=== PATIENT | male | born 1965 | race Caucasian/White ===

== ENCOUNTER 2018-10-03 07:30 | Outpatient (REF) | payer OTHER, SELFPAY ==
[2018-10-05 14:08] LABS: Helicobacter pylori Ag, Feces Negative (NEGAT)
== END 2018-10-03 07:50 ==
LOC: LBN 07:30
PROVIDERS: PCP Nurse Practitioner; Visit Provider Nurse Practitioner
DX: R12 Heartburn (principal)
CPT/HCPCS: 87338

== ENCOUNTER 2018-12-13 07:19 | Outpatient (CLI) | payer OTHER, SELFPAY ==
[2018-12-13 07:49] LABS: Mean Corp. HGB Concentration 34.9 g/dL (32.0-36.0); Mean Corpuscular Hemoglobin 29.8 pg (27.0-33.0); Mean Corpuscular Volume 85.3 fL (80-95); Mean Platelet Volume 10.5 fL (8.0-11.0); Platelet Count 208 x1000/uL (130-400); RBC 5.04 m/cumm (4.50-6.00); RBC Distribution Width 12.7 % (11.8-14.1); White Blood Cell Count 7.98 k/cumm (4.4-10.8)
[2018-12-13 08:34] LABS: ALT 45 U/L (12-78); AST 32 U/L (15-37); Albumin 3.5 g/dL (3.4-5.0); Alkaline Phosphatase 94 U/L (46-116); Anion Gap 5.9 mmol/L (3-11); BUN 15 mg/dL (7-18); CO2 31.1 mmol/L (21.0-32.0); CREATININE 0.93 mg/dL (0.70-1.30); Calcium 8.9 mg/dL (8.5-10.1); Chloride 103 mmol/L (98-107); Cholesterol 134 mg/dL (50-200); Glucose 96 mg/dL (70-100); HDL Cholesterol 48 mg/dL (40-60); LDL CHOLESTEROL 79 mg/dL (<100); Potassium 4.4 mmol/L (3.5-5.1); Sodium 140 mmol/L (136-145); Total Protein 6.1 g/dL (6.4-8.2); Triglyceride 33 mg/dL (30-150)
== END 2018-12-13 07:39 ==
PROVIDERS: PCP Nurse Practitioner; Visit Provider Nurse Practitioner
DX: I10 Essential (primary) hypertension (principal)
CPT/HCPCS: 36415; 80053; 80061; 83721; 85027

== ENCOUNTER 2019-11-29 13:17 | Emergency (ER) | payer OTHER, SELFPAY ==
[2019-11-29] VITALS (9 sets, daily range): BP systolic 108–162; BP diastolic 62–90; PULSE 68–81; RESP 18; TEMP 36.8; O2SAT 95–100
--- NOTE | 2019-11-29 13:30 | DI.CT_ITS ---
EXAM: CT ABDOMEN PELVIS W CLINICAL HISTORY: RLQ abdominal Pain TECHNIQUE: COMPARISON: No exams were available for comparison FINDINGS: CT examination of the abdomen and pelvis was performed with bolus infusion of 100 cc of Omnipaque 350 . Images obtained through the lung bases are unremarkable. Note is made of hepatic steatosis. Gall bladder and bile ducts are CT normal. Pancreas appears normal. Spleen is unremarkable in appearance . Abdominal aorta is of normal diameter and no major vascular abnormality is seen. Small fat contai malcolm umbilical hernia noted. No other significant abdominal wall hernia seen. No evidence of abdominal or pelvic adenopathy. Appendix is normal. There is no evidence of diverticulitis or bowel obstruction. Adrenals appear normal bilaterally. Left kidney is unremarkable in appearance except for an incidental approximately 2 cm in diameter pos terior cortex cyst. Right kidney contains multiple intrarenal calculi. There is a UPJ calculus measuring about 4 millime ters in diameter. There is no evidence of hydronephrosis but there is increased thickness of the wal l of the ureter with mild enhancement and Juju ureteral fat stranding suggesting associated inflammat ion. Please correlate regarding the possibility of infectious process.. Urinary bladder shows mild wall thickening which may reflect bladder outlet obstruction. IMPRESSION: Right renal calculi with 4 millimeter UPJ stone, apparently nonobstructing but associated with eviden ce adjacent inflammation or irritation. Correlation requested regarding any evidence of urinary trac t sepsis.
--- NOTE | 2019-11-29 13:33 | ED.GENADUL_ITS ---
Discharge Plan Disposition Patient Disposition: HOME Condition: Stable Discharge Details Chief Complaint: Abd Prob Clinical Impression: Kidney stone on right side Primary Care Provider: Analia Lara ED Provider: Esme Peters Home Meds and New Rx's Prescriptions: New tamsulosin 0.4 mg capsule 0.4 mg PO DAILY Qty: 10 RF: 0 tramadol 50 mg tablet 50 mg PO Q8H PRN (Reason: pain) 3 Days Qty: 7 RF: 0 No Action albuterol sulfate 90 mcg/actuation HFA aerosol inhaler 2 puff Inhalation Q4H PRN Qty: 8.5 RF: 6 esomeprazole magnesium 20 mg capsule,delayed release(DR/EC) 20 mg PO BID RF: 0 psyllium seed (sugar) Powder 2 tsp PO ONCE RF: 0 K-Phos Original 500 mg tablet,soluble 500 mg PO .twice weekly RF: 0 bupropion HCl 200 mg tablet sustained-release 12 hr See Rx Instructions PO DAILY Qty: 145 RF: 3 montelukast [Singulair] 10 mg tablet 10 mg PO DAILY Qty: 90 RF: 3 lisinopril 20 mg tablet 20 mg PO DAILY Qty: 90 RF: 0 multivitamin 1 EACH capsule 1 cap PO DAILY RF: 0 Discharge Instructions Instructions: Kidney Stones (ED) Additional Instructions: Take medications as prescribed. Do not operate heavy machinery and take medication for pain with food. If you can only take ibuprofen or Tylenol for pain use that instead. Follow-up with urology in 3 to 5 days. Return to the ED for any worsening pain, fever, decreased urination. Or any concerns. Follow up with primary care provider in 3-5 days. Return to ED sooner if any worsening or concerns. Increase oral fluids. Please take Tylenol or Ibuprofen with food every 4-6 hours as needed for pain and swelling. Referrals: Dennys Chan MD [ [facility] STAFF PHYSICIAN] - Analia Lara NP [Primary Care Provider] - Medical Decision Making 54-year-old male presents with a chief complaint of right lower quadrant abdominal pain. He rates this pain is moderate to severe and is intermittent in nature. He states that this began at 430 this morning as he was getting up out of bed. Associated with nausea and vomiting and chills. Denies radiation. Denies constipation or diarrhea. Denies fever. Only abdominal surgical history is hernia repair. He denies any testicle pain or swelling no dysuria. Differential diagnosis includes constipation, inguinal hernia, appendicitis, bowel obstruction, kidney stone, UTI, testicular torsion, gastroenteritis. CT abdomen pelvis with contrast ordered to rule out appendicitis versus nephrolithiasis and other intra-abdominal pathology. Results show multiple right renal pelvis stones with a 4 mm UVJ stone with surrounding ureteral stranding, no hydronephrosis. At this time patient does not have any evidence of pyuria or UTI. I feel at this time is safe for patient to be discharged home with pain medication and Flomax with outpatient follow-up with urology. CLINICAL HISTORY: RLQ abdominal Pain TECHNIQUE: COMPARISON: No exams were available for comparison FINDINGS: CT examination of the abdomen and pelvis was performed with bolus infusion of 100 cc of Omnipaque 350. Images obtained through the lung bases are unremarkable. Note is made of hepatic steatosis. Gallbladder and bile ducts are CT normal. Pancreas appears normal. Spleen is unremarkable in appearance. Abdominal aorta is of normal diameter and no major vascular abnormality is seen. Small fat containing umbilical hernia noted. No other significant abdominal wall hernia seen. No evidence of abdominal or pelvic adenopathy. Appendix is normal. There is no evidence of diverticulitis or bowel obstruction. Adrenals appear normal bilaterally. Left kidney is unremarkable in appearance except for an incidental approximately 2 cm in diameter posterior cortex cyst. Right kidney contains multiple intrarenal calculi. There is a UPJ calculus measuring about 4 millimeters in diameter. There is no evidence of hydronephrosis but there is increased thickness of the wall of the ureter with mild enhancement and Juju ureteral fat stranding suggesting associated inflammation. Please correlate regarding the possibility of infectious process.. Urinary bladder shows mild wall thickening which may reflect bladder outlet obstruction. IMPRESSION: Right renal calculi with 4 millimeter UPJ stone, apparently nonobstructing but associated with evidence adjacent inflammation or irritation. Correlation requested regarding any evidence of urinary tract sepsis. 1534: Spoke with Dr. Chan with urology regarding patient CT and request for follow-up, verbalizes understanding. Discussed giving patient Flomax and having patient follow-up in office. Will discuss strict return instructions with patient, verbalized understanding. HPI General Mode of arrival: ambulatory . Date/Time Provider Initiated Documentation: 11/29/19 13:21 . Limitations to Documentation: no limitations . Information obtained by: patient . HPI Narrative: 54-year-old male presents with a chief complaint of right lower quadrant abdominal pain. He rates this pain is moderate to severe and is intermittent in nature. He states that this began at 430 this morning as he was getting up out of bed. Associated with nausea and vomiting and chills. Denies radiation. Denies constipation or diarrhea. Denies fever. Only abdominal surgical history is hernia repair. He denies any testicle pain or swelling no dysuria. Related Data Home Medications Medication Instructions Recorded Confirmed multivitamin 1 cap PO DAILY 09/22/15 11/29/19 albuterol sulfate 90 mcg/actuation 2 puff INHALATION Q4H PRN #8.5 gm 08/14/18 11/29/19 aerosol inhaler esomeprazole magnesium 20 mg 20 mg PO BID cap 03/28/19 11/29/19 capsule,delayed release psyllium seed (sugar) 2 tsp PO ONCE gm 03/28/19 11/29/19 potassium phosphate, monobasic 500 500 mg PO .twice weekly tab 08/08/19 11/29/19 mg soluble tablet bupropion HCl 200 mg tablet,12 hr See Rx Instructions PO DAILY #145 09/24/19 11/29/19 sustained-release tab lisinopril 20 mg tablet 20 mg PO DAILY #90 tab 09/24/19 11/29/19 montelukast 10 mg tablet 10 mg PO DAILY #90 tab-cap 09/24/19 11/29/19 tamsulosin 0.4 mg PO DAILY #10 cap 11/29/19 tramadol 50 mg PO Q8H PRN 3 Days #7 tab 11/29/19 Previous Rx's Medication Instructions Recorded albuterol sulfate 90 mcg/actuation 2 puff INHALATION Q4H PRN #8.5 gm 08/14/18 aerosol inhaler bupropion HCl 200 mg tablet,12 hr See Rx Instructions PO DAILY #145 09/24/19 sustained-release tab lisinopril 20 mg tablet 20 mg PO DAILY #90 tab 09/24/19 montelukast 10 mg tablet 10 mg PO DAILY #90 tab-cap 09/24/19 tamsulosin 0.4 mg PO DAILY #10 cap 11/29/19 tramadol 50 mg PO Q8H PRN 3 Days #7 tab 11/29/19 Allergies Allergy/AdvReac Type Severity Reaction Status Date / Time Penicillins Allergy Intermediate rash and Verified 11/29/19 13:25 exacerbates asthma General Stated Complaint: Abd Prob ALYSSA: 3 Review of Systems Narrative: Constitutional: Negative for weight loss, alert and oriented, well groomed, normal body habitus, appears uncomfortable. Positive chills. HEENT: Denies trauma, headaches, blurry vision, nasal discharge, sore throat, trouble swallowing. Chest: Denies chest pain, palpitations, irregular rhythm, hypertension. Respiratory: Denies Shortness of breath, cough, hemoptysis. GI: Denies diarrhea, constipation. Positive right lower quadrant abdominal pain positive nausea and vomiting. : Denies dysuria, hematuria, flank pain, rectal bleeding. Neuro: Denies dizziness, blurry vision, weakness, syncope, headache or facial numbness. Hematologic: Denies easy bruising, intolerance to heat or cold, hair loss. 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 has been stretching Duration: 15-30 minutes/day Frequency: daily Seatbelt use: always Exam Narrative Exam Narrative: Constitutional: Alert and oriented x3. Appears stated age. Normal body habitus. Appears uncomfortable. Head: Normocephalic, no trauma. Eyes: Pupils PERRLA, Red reflex noted, EOM's intact. Eyelids symmetrical without lesions, discharge, or swelling. ENT: Bilateral TM's WNL, External ear normal to inspection, no mastoid TTP, swelling, or erythema, Nasal turbinates WNL, no nasal discharge. Normal dentition, Posterior pharynx WNL, no exudate. Chest: RRR, Normal S1, S2, distal pulses intact. Resp: Lungs clear to auscultation bilaterally, no wheezes, rales, or rhonchi. Abdomen: Soft hypoactive bowel sounds all 4 quadrants. Right lower quadrant tender to palpation over McBurney's point. Positive iliopsoas sign. Negative obturator sign. Musculoskeletal: Normal gait, 5/5 strength to all four extremities. Skin: No suspicious rashes or lesions. Capillary refill less than 2 sec. Neurologic: Cranial nerves II-XII intact. Alert and oriented x 3. DTR's intact. Hematologic/Lymphatic: No ecchymosis, no lymphadenopathy. Course Vital Signs Vital signs: Vital Signs Temperature 36.8 C 11/29/19 13:22 Pulse 68 11/29/19 13:22 Respiratory Rate 18 11/29/19 13:22 Blood Pressure 162/90 H 11/29/19 13:22 Pulse Oximetry 100 11/29/19 13:22 Temperature 36.8 C 11/29/19 13:22 Temperature Source Temporal Artery Scan 11/29/19 13:22 Pulse 68 11/29/19 13:22 Respiratory Rate 18 11/29/19 13:22 Respiratory Effort Non-Labored 11/29/19 13:28 Blood Pressure 162/90 H 11/29/19 13:22 Blood Pressure Position Supine 11/29/19 13:22 Pulse Oximetry 100 11/29/19 13:22 Oxygen Delivery Method Room Air 11/29/19 13:22 Oxygen Flow Rate 0 11/29/19 13:22 Pain Level 10 11/29/19 13:22
[2019-11-29] MEDS: Normal Saline 1,000 ML 1000 ML IV (13:43)
[2019-11-29] MEDS: Ondansetron 4 MG/2 ML VIAL IVP (13:43)
[2019-11-29] MEDS: MORPHine 10 MG/ML VIAL 2 MG IVP (13:44)
[2019-11-29 13:52] LABS: Abs Immature Grans 0.02 k/cumm (0.0-0.09); Absolute Basophil Count 0.03 k/cumm (0.0-0.2); Absolute Eosinophil Count 0.01 k/cumm (0.0-0.7); Absolute Lymphocyte Count 0.96 k/cumm (1.2-3.4); Absolute Monocyte Count 0.21 k/cumm (0.11-0.7); Absolute Neutrophil Count 6.71 k/cumm (1.2-6.7); Basophils % 0.4; Eosinophils % 0.1; HGB 15.4 g/dL (13.5-17.5); Immature Grans % 0.3 %; Lymphocytes % 12.1; Mean Corpuscular Hemoglobin 29.4 pg (27.0-33.0); Mean Platelet Volume 10.5 fL (8.0-11.0); Monocytes % 2.6; Neutrophils % 84.5; Platelet Count 270 x1000/uL (130-400); RBC 5.24 m/cumm (4.50-6.00); RBC Distribution Width 12.2 % (11.8-14.1); White Blood Cell Count 7.94 k/cumm (4.4-10.8)
[2019-11-29 13:55] LABS: ALT 58 U/L (16-63); AST 38 U/L (15-37); Albumin 3.9 g/dL (3.4-5.0); Alkaline Phosphatase 83 U/L (46-116); BUN 13 mg/dL (7-18); Bilirubin, Total 1.4 mg/dL (0.2-1.0); Calcium 8.9 mg/dL (8.5-10.1); Chloride 102 mmol/L (98-107); Glucose 127 mg/dL (74-106); Lipase 85 U/L (73-393); Sodium 135 mmol/L (136-145); Total Protein 6.5 g/dL (6.4-8.2)
[2019-11-29 15:01] LABS: Bilirubin Negative (Negative); Blood Large (Negative); Clarity Sl Cloudy (Clear); Glucose Negative (Negative); Ketones 40 mg/dL (Negative); Leukocyte Esterase Negative (Negative); Nitrite Negative (Negative); Urobilinogen 0.2 EU/dL (Up TO 0.2); pH >= 9.0 (5-8)
[2019-11-29] MEDS: Omnipaque 350 MG/ML 100 ML BTL IJ (15:12)
[2019-11-29 15:23] LABS: Bacteria Negative HPF (Negative); C & S Indicated? No; Casts Negative LPF (Negative); Crystals Negative HPF (Negative); Epithelial Cells Rare HPF (Negative); Mucus Negative (Negative); RBC 20-50 HPF (0-2); WBC 0-2 HPF (0-5)
[2019-11-29] MEDS: Tamsulosin 0.4 MG CAPCR PO (15:48)
== END 2019-11-29 15:50 | disposition home or self-care (01) ==
PROVIDERS: Emergency Provider Registered Nurse Emergency; PCP Nurse Practitioner
DX: N20.2 Calculus of kidney with calculus of ureter (principal)
CPT/HCPCS: 36415; 80053; 83690; 96361; 96374; 96375; 99285; 74177; 81003; 81015; 85025; 99284; J2270; J2405; J3490

== ENCOUNTER 2019-12-04 00:21 | Emergency (ER) | payer OTHER, SELFPAY ==
[2019-12-04 00:23] VITALS: BP 130/80; PULSE 72; RESP 20; TEMP 36.7; O2SAT 98
--- NOTE | 2019-12-04 00:28 | NUR.NOTE ---
Pt seen 11/28 for left flank pain, dx with kidney stone, sent home on flomax and pain med. States felt better x 3 days, today had pain in right abd again and N/V. Abd pain resolved. Denies hematuria, dysuria. Denies fevers.
--- NOTE | 2019-12-04 00:35 | W.ED.GENAD ---
Discharge Plan Disposition Patient Disposition: HOME Condition: Improving Discharge Details Chief Complaint: Nausea/Vomit/Diar Clinical Impression: Renal colic on right side Primary Care Provider: Aanlia Lara ED Provider: Alberto Farrell Home Meds and New Rx's Prescriptions: New ciprofloxacin HCl 500 mg tablet 500 mg PO BID Qty: 10 RF: 0 Continued albuterol sulfate 90 mcg/actuation HFA aerosol inhaler 2 puff Inhalation Q4H PRN Qty: 8.5 RF: 6 esomeprazole magnesium 20 mg capsule,delayed release(DR/EC) 20 mg PO BID RF: 0 psyllium seed (sugar) Powder 2 tsp PO ONCE RF: 0 K-Phos Original 500 mg tablet,soluble 500 mg PO .twice weekly RF: 0 bupropion HCl 200 mg tablet sustained-release 12 hr See Rx Instructions PO DAILY Qty: 145 RF: 3 montelukast [Singulair] 10 mg tablet 10 mg PO DAILY Qty: 90 RF: 3 lisinopril 20 mg tablet 20 mg PO DAILY Qty: 90 RF: 0 multivitamin 1 EACH capsule 1 cap PO DAILY RF: 0 tamsulosin 0.4 mg capsule 0.4 mg PO DAILY Qty: 10 RF: 0 Discharge Instructions Instructions: Kidney Stones (ED), Renal Colic (ED) Additional Instructions: Please continue the previously prescribed tamsulosin as it will help to relax your ureter to aid in passage of the kidney stone. Please take ciprofloxacin as prescribed. We will ask care management to arrange an outpatient follow-up for you in urology clinic. May continue Tylenol and/or ibuprofen as needed for pain. Continue small, frequent sips of water to maintain good hydration. Return if develop a fever, recurrent pain that is refractive to home medications, or any other acute concerns. Medical Decision Making 54-year-old male presents from home with history of 4 mm distal ureteral kidney stone, right-sided, diagnosed this past . He states his pain improved and was feeling better. He now reports recurrence of pain after dinner this evening followed by persistent nausea. Is not had any ongoing pain but has been unable to take liquids or solids by mouth due to persistent nausea and vomiting. He is afebrile and well-appearing. Labs note total bili of 1.5, AST 41, ALT 55 which are not significantly changed versus recent comparison. Reviewed recent CT scan, note is made of hepatic steatosis. Gallbladder and bile ducts were unremarkable. On IV fluids and antiemetic, the patient's nausea improved, he then began to develop recurrent colicky right lower quadrant pain. Repeat imaging was obtained and patient given Toradol with resolution of pain. CT reveals right hydroureteronephrosis with note of persistent 4 to 5 cm calculus that has progressed distally. Urinalysis is notable for positive leuk esterase, no red blood cells, no white cells, negative nitrates, but does note rare bacteria. Out of an abundance of caution, I will treat him with a course of ciprofloxacin and we will arrange outpatient follow-up in urology. Patient is stable and improved at this time. Lab Data Lab results reviewed: Yes I reviewed the patient's lab results. Labs: Laboratory Results - last 24 hr 12/04/19 12/04/19 00:28 00:28 WBC 8.00 RBC 5.04 Hgb 15.1 Hct 42.2 MCV 83.7 MCH 30.0 MCHC 35.8 RDW 12.3 Plt Count 263 MPV 10.4 Immature Gran % 0.3 Neutrophils % 79.0 Lymphocytes % 15.8 Monocytes % 4.4 Eosinophils % 0.1 Basophils % 0.4 Absolute Neutrophils 6.33 Absolute Lymphocytes 1.26 Absolute Monocytes 0.35 Absolute Eosinophils 0.01 Absolute Basophils 0.03 Sodium 135 L Potassium 4.1 Chloride 101 Carbon Dioxide 28.3 Anion Gap 5.7 BUN 12 Creatinine 1.20 Estimated GFR/1.73 m2 >= 60.00 Glucose 129 H Calcium 8.8 Total Bilirubin 1.5 H AST 41 H ALT 55 Alkaline Phosphatase 74 Total Protein 6.4 Albumin 3.8 HPI General Mode of arrival: ambulatory. Date/Time Provider Initiated Documentation: 12/04/19 00:28. Limitations to Documentation: no limitations. Information obtained by: patient. History of Present Illness 54 year old M presents to the emergency department with the chief complaint of Recent kidney stone, now nauseated and vomiting, described as moderate, Quality is described as dull, and is localized to the abdomen and right. Patient reports no radiation. Patient started experiencing this hour(s) and it has been constant. No relieving factors improve symptom(s), Eating worsens symptoms . Patient notes other (States he had abdominal pain recurrent earlier in the day, now no pain); denies fever/chills. Patient did receive the following treatments prior to arrival, none Related Data Home Medications Medication Instructions Recorded Confirmed multivitamin 1 cap PO DAILY 09/22/15 12/04/19 albuterol sulfate 90 mcg/actuation 2 puff INHALATION Q4H PRN #8.5 gm 08/14/18 12/04/19 aerosol inhaler esomeprazole magnesium 20 mg 20 mg PO BID cap 03/28/19 12/04/19 capsule,delayed release psyllium seed (sugar) 2 tsp PO ONCE gm 03/28/19 12/04/19 potassium phosphate, monobasic 500 500 mg PO .twice weekly tab 08/08/19 12/04/19 mg soluble tablet bupropion HCl 200 mg tablet,12 hr See Rx Instructions PO DAILY #145 09/24/19 12/04/19 sustained-release tab lisinopril 20 mg tablet 20 mg PO DAILY #90 tab 09/24/19 12/04/19 montelukast 10 mg tablet 10 mg PO DAILY #90 tab-cap 09/24/19 12/04/19 tamsulosin 0.4 mg PO DAILY #10 cap 11/29/19 12/04/19 ciprofloxacin HCl 500 mg PO BID #10 tab 12/04/19 Previous Rx's Medication Instructions Recorded albuterol sulfate 90 mcg/actuation 2 puff INHALATION Q4H PRN #8.5 gm 08/14/18 aerosol inhaler bupropion HCl 200 mg tablet,12 hr See Rx Instructions PO DAILY #145 09/24/19 sustained-release tab lisinopril 20 mg tablet 20 mg PO DAILY #90 tab 09/24/19 montelukast 10 mg tablet 10 mg PO DAILY #90 tab-cap 09/24/19 tamsulosin 0.4 mg PO DAILY #10 cap 11/29/19 ciprofloxacin HCl 500 mg PO BID #10 tab 12/04/19 Allergies Allergy/AdvReac Type Severity Reaction Status Date / Time Penicillins Allergy Intermediate rash and Verified 12/04/19 00:25 exacerbates asthma General Stated Complaint: Nausea/Vomit/Diar ALYSSA: 3 Review of Systems Narrative: No fever, recent travel, known sick contacts. He has otherwise been well. Taking his medications as prescribed. 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 has been stretching Duration: 15-30 minutes/day Frequency: daily Seatbelt use: always Do you feel safe at home: Yes Do you feel safe in your relationship?: Yes Exam Narrative Exam Narrative: GEN: awake, alert, oriented 3. Pleasant, well groomed, interactive. HEAD: Normocephalic, atraumatic ENT: Mucous membranes dry, External ear exam unremarkable EYES: PERRL, EOMI NECK: Full ROM, no TAE, no menigismus CHEST/RESP: Nontender, clear to auscultation bilateral, no wheeze/rhonchi/rales CARDIOVASCULAR: RRR, no murmur, rub camelia. 2+ Rad pulse bilateral ABDOMEN: Soft, nontender, no mass. +Bowel sounds EXT: Full ROM, no edema, no rash Neuro: Grossly normal neurologic exam, conversant, interactive. Psych: Speech fluent, thoughts congruent, affect normal Course Vital Signs Vital signs: Vital Signs Temperature 36.7 C 12/04/19 00:23 Pulse 72 12/04/19 00:23 Respiratory Rate 20 12/04/19 00:23 Blood Pressure 130/80 12/04/19 00:23 Pulse Oximetry 98 12/04/19 00:23 Temperature 36.7 C 12/04/19 00:23 Temperature Source Temporal Artery Scan 12/04/19 00:23 Pulse 72 12/04/19 00:23 Respiratory Rate 20 12/04/19 00:23 Respiratory Effort 12/04/19 00:26 Blood Pressure 130/80 12/04/19 00:23 Blood Pressure Position Sitting 12/04/19 00:23 Pulse Oximetry 98 12/04/19 00:23 Oxygen Delivery Method Room Air 12/04/19 00:23 Oxygen Flow Rate 0 12/04/19 00:23 Pain Level 0 12/04/19 00:23
[2019-12-04] MEDS: Ondansetron 4 MG/2 ML VIAL 8 MG IVP (00:41)
[2019-12-04] MEDS: Normal Saline 1,000 ML 1000 ML IV (00:42)
[2019-12-04 00:44] LABS: Abs Immature Grans 0.02 k/cumm (0.0-0.09); Absolute Basophil Count 0.03 k/cumm (0.0-0.2); Absolute Eosinophil Count 0.01 k/cumm (0.0-0.7); Absolute Lymphocyte Count 1.26 k/cumm (1.2-3.4); Absolute Monocyte Count 0.35 k/cumm (0.11-0.7); Absolute Neutrophil Count 6.33 k/cumm (1.2-6.7); Basophils % 0.4; Eosinophils % 0.1; HCT 42.2 % (40.0-50.0); HGB 15.1 g/dL (13.5-17.5); Immature Grans % 0.3 %; Lymphocytes % 15.8; Mean Corp. HGB Concentration 35.8 g/dL (32.0-36.0); Mean Corpuscular Volume 83.7 fL (80-95); Mean Platelet Volume 10.4 fL (8.0-11.0); Monocytes % 4.4; Platelet Count 263 x1000/uL (130-400); RBC 5.04 m/cumm (4.50-6.00); RBC Distribution Width 12.3 % (11.8-14.1)
[2019-12-04 00:56] LABS: ALT 55 U/L (16-63); AST 41 U/L (15-37); Albumin 3.8 g/dL (3.4-5.0); Alkaline Phosphatase 74 U/L (46-116); Anion Gap 5.7 mmol/L (3-11); BUN 12 mg/dL (7-18); Bilirubin, Total 1.5 mg/dL (0.2-1.0); CO2 28.3 mmol/L (21.0-32.0); Calcium 8.8 mg/dL (8.5-10.1); Chloride 101 mmol/L (98-107); Glucose 129 mg/dL (74-106); Potassium 4.1 mmol/L (3.5-5.1); Sodium 135 mmol/L (136-145); Total Protein 6.4 g/dL (6.4-8.2)
[2019-12-04] MEDS: Ketorolac 30 MG/ML VIAL IVP (01:12)
--- NOTE | 2019-12-04 01:25 | DI.CT_ITS ---
EXAM: CT ABDOMEN PELVIS WO CLINICAL HISTORY: RLQ pain. TECHNIQUE: Imaging Protocol: Axial computed tomography images with coronal and sagittal reformatted images were created and reviewed. COMPARISON: CT CT ABDOMEN PELVIS W from 11/29/2019 FINDINGS: ABDOMEN: Lung Bases: Normal where visualized. Liver: Diffuse decreased attenuation consistent with fatty liver. No measurable mass. Gallbladder and biliary tract: No radiodense calculus or biliary ductal dilation. Pancreas: Normal density, no abnormal calcifications or inflammatory process. Spleen: Normal. Kidneys: Normal size, contour and axis. The previously noted 4 mm stone has migrated distally within the ureter. There is moderate hydronephrosis. Several other nonobstructing right renal stones are p resent. There is again seen a cyst cyst on the left kidney. No evidence of left nephrolithiasis or obstruction. Adrenal glands: No masses seen. Lymph nodes: Within normal limits. Abdominal Aorta: Abdominal portion non-dilated. Mild atherosclerosis. PELVIS: Bladder: Symmetric distention, no gross wall thickening. Bowel: No obstruction or bowel wall thickening. The appendix is unremarkable. Peritoneal cavity: No ascites, collection or mesenteric inflammatory response. Reproductive organs: Within normal limits. Bones: Mild degenerative changes. Soft Tissues: Small fat containing umbilical hernia. IMPRESSION: Previously noted 4 mm stone has migrated approximately 4-5 cm distally within the right ureter. Ther e is moderate hydronephrosis. RADIATION DOSE DELIVERED: 1,098.18mGy.cm Total DLP DATA REPOSITORY: All CT scans at this facility are submitted to the National Radiology Data Registry (NRDR) Dose Index Registry (DIR) with the [employer] ([employer]). RADIATION OPTIMIZATION: All CT scans at this facility use at least one of these dose optimization te chniques: automated exposure control; mA and/or kV adjustment per patient size (includes targeted exa ms where dose is matched to clinical indication); or iterative reconstruction.
--- NOTE | 2019-12-04 01:50 | NUR.NOTE ---
Pain free after toradol. Nausea improved s/p zofra. atempted to give UA, unable. MD Farrell aware.
--- NOTE | 2019-12-04 01:55 | DI.VRAD_ITS ---
PROCEDURE INFORMATION: Exam: CT Abdomen And Pelvis Without Contrast Exam date and time: 12/04/2019 1:07 AM Age: 54 years old Clinical indication: Abdominal pain; Localized; Right lower quadrant (rlq); Prior surgery; Surgery date: 6+ months; Surgery type: Hernia repair; Patient HX: Rlq pain, known kidney stone TECHNIQUE: Imaging protocol: Computed tomography of the abdomen and pelvis without contrast. Radiation optimization: All CT scans at this facility use at least one of these dose optimization techniques: automated exposure control; mA and/or kV adjustment per patient size (includes targeted exams where dose is matched to clinical indication); or iterative reconstruction. COMPARISON: CT ABDOMEN PELVIS W 11/29/2019 3:05 PM FINDINGS: Liver: Low-attenuation of the liver is in keeping with hepatic steatosis. Gallbladder and bile ducts: Normal. No calcified stones. No ductal dilation. Pancreas: Normal. No ductal dilation. Spleen: Normal. No splenomegaly. Adrenals: Normal. No mass. Kidneys and ureters: Simple appearing left renal cyst measures 1.9 cm. There are several punctate nonobstructing right renal calculi. There is mild right hydronephrosis and proximal hydroureter to the level of a 4 x 8 mm right proximal ureteral calculus (series 2, image 46). This calculus has migrated slightly distally in comparison to 11/29/2019. There is right perinephric and proximal periureteral stranding, increased in comparison to the prior study. No drainable fluid collection. The left kidney and ureter are otherwise within normal limits. Stomach and bowel: Mild stool burden in the colon. Normal stomach. No small bowel obstruction or wall thickening. Appendix: Normal appendix. Intraperitoneal space: See Kidneys and ureters finding. Vasculature: No abdominal aortic aneurysm. Lymph nodes: No enlarged lymph nodes. Bladder: Unremarkable as visualized. Reproductive: Top-normal prostate size measuring up to 4.8 cm in transverse diameter. Bones/joints: Mild multilevel degenerative changes in the spine. No acute osseous findings. Soft tissues: Small fat containing umbilical hernia. Other findings: No acute findings in the lower chest. IMPRESSION: Right hydroureteronephrosis to the level of a calculus in the proximal ureter, noting that the stone has mildly progressed distally by approximately 4-5 cm in comparison to 11/29/2019. Associated perinephric and proximal periureteral stranding, increased since the prior study. Dictated and Authenticated by: Jade Hein MD. Ordering:JACKIE Dominguez MD
[2019-12-04 02:27] LABS: Bilirubin Negative (Negative); Blood Trace-intact (Negative); Clarity Clear (Clear); Glucose Negative (Negative); Ketones 15 mg/dL (Negative); Leukocyte Esterase Trace (Negative); Nitrite Negative (Negative); Specific Gravity 1.015 (1.005-1.025); Urobilinogen 0.2 EU/dL (Up TO 0.2)
[2019-12-04 02:34] LABS: Bacteria Rare HPF (Negative); C & S Indicated? Yes; Casts Negative LPF (Negative); Crystals Negative HPF (Negative); Epithelial Cells Negative HPF (Negative); Mucus Negative (Negative); RBC 0-2 HPF (0-2); WBC 0-2 HPF (0-5)
[2019-12-04 02:47] VITALS: BP 132/81; PULSE 74; RESP 16; TEMP 37; O2SAT 97
== END 2019-12-04 02:50 | disposition home or self-care (01) ==
PROVIDERS: Emergency Provider Emergency Medicine; PCP Nurse Practitioner
DX: N13.2 Hydronephrosis with renal and ureteral calculous obstruction (principal)
CPT/HCPCS: 36415; 80053; 96361; 96374; 96375; 99284; 74176; 81003; 81015; 85025; 87086; J1885; J2405

== ENCOUNTER 2019-12-07 01:38 | Emergency (ER) | payer OTHER, SELFPAY ==
[2019-12-07 01:45] VITALS: BP 123/89; PULSE 69; RESP 20; TEMP 37.3; O2SAT 97
--- NOTE | 2019-12-07 01:46 | W.ED.GENAD ---
Discharge Plan Disposition Patient Disposition: HOME Condition: Good Discharge Details Chief Complaint: FlankPain Clinical Impression: Renal colic on right side Primary Care Provider: Analia Lara ED Provider: Gwyn Resendiz [place] Meds and New Rx's Prescriptions: Continued tamsulosin 0.4 mg capsule 0.4 mg PO DAILY Qty: 10 RF: 0 ketorolac 10 mg tablet 10 mg PO TID PRN (Reason: pain) 5 Days Qty: 15 RF: 0 albuterol sulfate 90 mcg/actuation HFA aerosol inhaler 2 puff Inhalation Q4H PRN Qty: 8.5 RF: 6 esomeprazole magnesium 20 mg capsule,delayed release(DR/EC) 20 mg PO BID RF: 0 psyllium seed (sugar) Powder 2 tsp PO ONCE RF: 0 K-Phos Original 500 mg tablet,soluble 500 mg PO .twice weekly RF: 0 bupropion HCl 200 mg tablet sustained-release 12 hr See Rx Instructions PO DAILY Qty: 145 RF: 3 montelukast [Singulair] 10 mg tablet 10 mg PO DAILY Qty: 90 RF: 3 lisinopril 20 mg tablet 20 mg PO DAILY Qty: 90 RF: 0 prochlorperazine maleate [Compazine] 5 mg tablet 5 mg PO QID PRN (Reason: nausea and vomiting) Qty: 20 RF: 0 multivitamin 1 EACH capsule 1 cap PO DAILY RF: 0 ciprofloxacin HCl 500 mg tablet 500 mg PO BID Qty: 10 RF: 0 tramadol [Ultram] 50 mg tablet 50 mg PO .Q8H PRN RF: 0 Discharge Instructions Instructions: Renal Colic (ED) Additional Instructions: Continue your antibiotic and your Flomax. Use Tylenol and ketorolac in an alternating fashion to try to keep your pain under control. However, if pain starts to ramp up please take your tramadol before it gets too bad. Prochlorperazine is for nausea/vomiting. Follow-up with Dr. Chan for your surgery as planned. Return to ED for fever, uncontrolled pain, vomiting. Referrals: Dennys Chan MD [ [facility]] - Medical Decision Making IV established. Patient given 0.5 mg of IV Dilaudid and 4 mg of IV Zofran. We had to place him on some oxygen as he did have some desaturations related to sedation. Pain is controlled. We will watch him for a little while. 03:10 - Patient doing fine now. Pain controled. Awake and doing well. We reviewed his medications with his over the phone. He has ketorolac and tramadol at home. He also has prochlorperazine for nausea. Tonight he took the ketorolac but almost immediately vomited it back up. Sounds like he like the pain get ahead of him. I have discussed with him using Tylenol alternating with ketorolac fairly regularly to keep pain controlled. He should use the tramadol as soon as the pain starts to ramp up to stay ahead of it. Follow-up with Dr. Chan for surgery as planned. Return to ED for fever, uncontrolled pain, persistent vomiting. Medical Records Medical records reviewed: Yes I reviewed the patient's medical records. HPI General Mode of arrival: ambulatory. Date/Time Provider Initiated Documentation: 12/07/19 01:39. Limitations to Documentation: no limitations. Information obtained by: patient, RN notes reviewed and old records reviewed. HPI Narrative: Patient presents with recurrent right lower quadrant abdominal pain. He has a known right ureteral stone with hydronephrosis. He was seen by urology just a few days ago. He has been scheduled for procedure hopefully within the next week. For the most part pain has been controllable. Tonight severe uncontrolled pain with nausea and vomiting. There is no fevers. He is on Flomax, Cipro, ketorolac and Compazine. Related Data Home Medications Medication Instructions Recorded Confirmed multivitamin 1 cap PO DAILY 09/22/15 12/07/19 albuterol sulfate 90 mcg/actuation 2 puff INHALATION Q4H PRN #8.5 gm 08/14/18 12/07/19 aerosol inhaler esomeprazole magnesium 20 mg 20 mg PO BID cap 03/28/19 12/07/19 capsule,delayed release psyllium seed (sugar) 2 tsp PO ONCE gm 03/28/19 12/07/19 potassium phosphate, monobasic 500 500 mg PO .twice weekly tab 08/08/19 12/07/19 mg soluble tablet bupropion HCl 200 mg tablet,12 hr See Rx Instructions PO DAILY #145 09/24/19 12/07/19 sustained-release tab lisinopril 20 mg tablet 20 mg PO DAILY #90 tab 03/09/20 05/22/20 montelukast 10 mg tablet 10 mg PO DAILY #90 tab-cap 09/24/19 12/07/19 ciprofloxacin HCl 500 mg PO BID #10 tab 12/04/19 12/07/19 ketorolac 10 mg tablet 10 mg PO TID PRN 5 Days #15 tab 12/04/19 12/07/19 prochlorperazine maleate 5 mg 5 mg PO QID PRN #20 tab 12/04/19 12/07/19 tablet tamsulosin 0.4 mg capsule 0.4 mg PO DAILY #10 cap 12/04/19 12/07/19 tramadol [Ultram] 50 mg PO .Q8H PRN 12/07/19 12/07/19 Previous Rx's Medication Instructions Recorded albuterol sulfate 90 mcg/actuation 2 puff INHALATION Q4H PRN #8.5 gm 08/14/18 aerosol inhaler bupropion HCl 200 mg tablet,12 hr See Rx Instructions PO DAILY #145 09/24/19 sustained-release tab lisinopril 20 mg tablet 20 mg PO DAILY #90 tab 09/24/19 montelukast 10 mg tablet 10 mg PO DAILY #90 tab-cap 09/24/19 ciprofloxacin HCl 500 mg PO BID #10 tab 12/04/19 ketorolac 10 mg tablet 10 mg PO TID PRN 5 Days #15 tab 12/04/19 prochlorperazine maleate 5 mg 5 mg PO QID PRN #20 tab 12/04/19 tablet tamsulosin 0.4 mg capsule 0.4 mg PO DAILY #10 cap 12/04/19 Allergies Allergy/AdvReac Type Severity Reaction Status Date / Time Penicillins Allergy Intermediate rash and Verified 12/07/19 02:02 exacerbates asthma General ALYSSA: 3 Review of Systems Narrative: As documented in HPI otherwise negative as below. Const: no fever, chills, weakness Resp: no cough, SOB, pleuritic pain CV: no CP, diaphoresis, edema, syncope GI: abdominal pain, nausea, vomiting Neuro: no headache, numbness, focal weakness, confusion [facility] Medical History Asthma Chronic gastroesophageal reflux disease (Acute) 02/16/19 DM Gastro. with dyspepsia and odynophagia 03/06/19 EGD [facility] mild chronic nonpsecific gastritis Depression (Chronic 02/10/18) HTN (hypertension) (Chronic) Kidney stone on right side (Acute) Surgical History Repair of umbilical hernia Social History Smoking/Tobacco Use Status: Former Tobacco Use Quit Date: 08/08/04 Pack-years: 8 Tobacco: How many years used: 17 Alcohol Intake: current Alcohol Intake frequency: a few times a week Alcohol type: beer and hard liquor Drug use: Never Substance use type: does not use Household members: spouse Housing: house Number of Children: 3 number of grandchildren: 0 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 has been stretching Duration: 15-30 minutes/day Frequency: daily Seatbelt use: always Do you feel safe at home: Yes Do you feel safe in your relationship?: Yes Exam Narrative Exam Narrative: Vitals: Afebrile with normal vitals and normal room air pulse ox. Const: WDWN male in distress from pain. HEENT: NC/AT. Normal facial exam. Eyes: Normal conjunctiva and sclera. Neck: Supple. Trachea midline. Lungs: Normal respiratory effort. Cor: Good radial pulses. GI: Soft. NT/ND. No guarding or rebound. Neuro: A+O x 3. Normal speech, mentation, gait. Cranial nerves II - XII grossly intact. No gross motor or sensory deficit. Ext: No C/C/E. Skin: Warm and dry without rash.
[2019-12-07] MEDS: Ondansetron 4 MG/2 ML VIAL IVP (02:02)
[2019-12-07] MEDS: HYDROmorphone 2 MG/ML VIAL 0.5 MG IVP (02:02)
[2019-12-07 04:19] VITALS: BP 105/69; PULSE 69; RESP 12; TEMP 36.9; O2SAT 97
== END 2019-12-07 03:45 | disposition home or self-care (01) ==
LOC: ER 03:26
PROVIDERS: Emergency Provider Emergency Medicine; PCP Nurse Practitioner
DX: N13.2 Hydronephrosis with renal and ureteral calculous obstruction (principal); R11.2 Nausea with vomiting, unspecified; I10 Essential (primary) hypertension
CPT/HCPCS: 96374; 96375; 99284; 99283; J2405

== ENCOUNTER 2019-12-07 09:44 | Day surgery (SDC) | payer OTHER, SELFPAY ==
[2019-12-07 09:50] VITALS: BP 121/90; PULSE 66; RESP 16; TEMP 36.8; O2SAT 98
[2019-12-07] MEDS: Lactated Ringers 1,000 ML 80 ML IV (10:28)
[2019-12-07] MEDS: CIPROFLOXACIN 400 MG/200 ML BAG 200 MG IVPB (10:30)
--- NOTE | 2019-12-07 10:46 | HPE_ITS ---
Date of service: 12/07/19 Time of Service: 10:53 Assessment and Plan Assessment and plan (1) Kidney stone on right side: Status: Acute Assessment and plan: With his recurrent ER visits for uncontrolled pain, we will proceed with cystoscopy, right retrograde pyelogram, possible ureteroscopy with laser lithotripsy, possible stent placement on a more urgent basis. History of Present Illness History of Present Illness Chief Complaint: Right renal colic Narrative: Candelario is a 54-year-old male referred to urology by the emergency room. He was seen most recently earlier this morning for right colic flank pain. He was also seen last for similar discomfort. Both episodes it was noted that he had a stone in the right ureter. He thinks that the first episode of this right flank pain started back in September. At that point it was manageable with [id number] medications. He was not sure what it was but try to work it out at home. He notes that the discomfort is manageable for the most part however the nausea and vomiting today have been causing him to have greater concern. He did call his PCPs office for the nausea. Currently he says his pain is manageable. Last medication for pain was given through the emergency room. He was scheduled for a stone manipulation for next week but he presented to the emergency department again today with severe pain requiring IV analgesia and antiemetics. We have moved his procedure up and are doing the procedure on an urgent basis. as such, he has not had Covid testing. Denies dysuria, hematuria, frequency, urgency, or fevers. He has had some chills when he gets extreme discomfort and nausea. He thinks he has been having some radiating discomfort down into his right testicle. This is his first kidney stone. He has no history of gout. He has no history of parathyroidism. He does note that he does not drink nearly enough water. He also says he has a high salt diet. Review of Systems Narrative: No fevers or chills No vision change No diabetes or thyroid No shortness of breath, cough or hemoptysis No chest pain or palpitations No hepatitis, ulcers, jaundice, diarrhea or constipation No seizures, strokes or peripheral neuropathy No bleeding disorders or anemia No gout PFSH Social History Smoking/Tobacco Use Status: Former Tobacco Use Quit Date: 08/08/04 Pack-years: 8 Tobacco: How many years used: 17 Alcohol Intake: current Alcohol Intake frequency: a few times a week Alcohol ty pe: beer and hard liquor Drug use: Never Substance use type: does not use Household members: spouse Housing: house Number of Children: 3 number of grandchildren: 0 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 has been stretching Duration: 15-30 minutes/day Frequency: daily Seatbelt use: always Do you feel safe at home: Yes Do you feel safe in your relationship?: Yes Meds Home Medications and Allergies Home Medications Medication Instructions Recorded Confirmed Type multivitamin 1 cap PO DAILY 09/22/15 12/07/19 History albuterol sulfate 90 mcg/actuation 2 puff INHALATION Q4H PRN #8.5 gm 08/14/18 12/07/19 Rx aerosol inhaler esomeprazole magnesium 20 mg 20 mg PO BID cap 03/28/19 12/07/19 History capsule,delayed release psyllium seed (sugar) 2 tsp PO ONCE gm 03/28/19 12/07/19 History potassium phosphate, monobasic 500 500 mg PO .twice weekly tab 08/08/19 12/07/19 History mg soluble tablet bupropion HCl 200 mg tablet,12 hr See Rx Instructions PO DAILY #145 09/24/19 12/07/19 Rx sustained-release tab lisinopril 20 mg tablet 20 mg PO DAILY #90 tab 09/24/19 12/07/19 Rx montelukast 10 mg tablet 10 mg PO DAILY #90 tab-cap 09/24/19 12/07/19 Rx ciprofloxacin HCl 500 mg PO BID #10 tab 12/04/19 12/07/19 Rx ketorolac 10 mg tablet 10 mg PO TID PRN 5 Days #15 tab 12/04/19 12/07/19 Rx prochlorperazine maleate 5 mg 5 mg PO QID PRN #20 tab 12/04/19 12/07/19 Rx tablet tamsulosin 0.4 mg capsule 0.4 mg PO DAILY #10 cap 12/04/19 12/07/19 Rx tramadol [Ultram] 50 mg PO .Q8H PRN 12/07/19 12/07/19 History Allergies Allergy/AdvReac Type Severity Reaction Status Date / Time Penicillins Allergy Intermediate rash and Verified 12/07/19 02:02 exacerbates asthma Exam Neck Neck: supple Resp Effort & Inspection: normal respiratory effort Auscultation: clear to auscultation bilaterally Cardio Rate: regular rate Rhythm: regular rhythm GI Palpation: soft and no masses Neuro General: patient alert, patient awake and patient oriented x3 Results Last Vital Signs Temp 36.8 C 12/07/19 09:50 Pulse 66 12/07/19 09:50 Resp 16 12/07/19 09:50 BP 121/90 12/07/19 09:50 Pulse Ox 98 12/07/19 09:50 COVID-19 Screening In the past 14 days, have you traveled outside of [place] or [place]?: NO
[2019-12-07] MEDS: Lidocaine 2% Jelly 6 ML SYR (11:29)
[2019-12-07] MEDS: Omnipaque 300 MG/ML 50 ML BTL (11:43)
--- NOTE | 2019-12-07 12:24 | W.PM.DSUDISC ---
Discharge Plan Disposition Patient Disposition: HOME Condition: Stable Discharge Details Reason For Visit: (R) URETERAL STONE Attending Provider: Dennys Chan Primary Care Provider: Analia Lara Home Meds and New Rx's Prescriptions: No Action tamsulosin 0.4 mg capsule 0.4 mg PO DAILY Qty: 10 RF: 0 ketorolac 10 mg tablet 10 mg PO TID PRN (Reason: pain) 5 Days Qty: 15 RF: 0 albuterol sulfate 90 mcg/actuation HFA aerosol inhaler 2 puff Inhalation Q4H PRN Qty: 8.5 RF: 6 esomeprazole magnesium 20 mg capsule,delayed release(DR/EC) 20 mg PO BID RF: 0 psyllium seed (sugar) Powder 2 tsp PO ONCE RF: 0 K-Phos Original 500 mg tablet,soluble 500 mg PO .twice weekly RF: 0 bupropion HCl 200 mg tablet sustained-release 12 hr See Rx Instructions PO DAILY Qty: 145 RF: 3 montelukast [Singulair] 10 mg tablet 10 mg PO DAILY Qty: 90 RF: 3 lisinopril 20 mg tablet 20 mg PO DAILY Qty: 90 RF: 0 prochlorperazine maleate [Compazine] 5 mg tablet 5 mg PO QID PRN (Reason: nausea and vomiting) Qty: 20 RF: 0 multivitamin 1 EACH capsule 1 cap PO DAILY RF: 0 ciprofloxacin HCl 500 mg tablet 500 mg PO BID Qty: 10 RF: 0 tramadol [Ultram] 50 mg tablet 50 mg PO .Q8H PRN RF: 0 Discharge Instructions Additional Instructions: Patient should keep his appointment for COVID testing and surgery next week. No need to strain urine Activity:: Activity as Tolerated Shower/Bathe:: 24 hours Diet:: As Tolerated Discharge Orders Discharge Orders: Discharge Order (Routine); Ordered 12/07/19 Ordered By: Dennys Chan DS: Diagnosis Discharge Diagnosis (1) Kidney stone on right side: Status: Acute
--- NOTE | 2019-12-07 12:25 | DI.RAD_ITS ---
EXAM: XR RETROGRADE IN OR CLINICAL HISTORY: right kidney stone TECHNIQUE: 2D and realtime digital imaging was performed. CONTRAST MATERIAL: Refer to procedure report. COMPARISON: No exams were available for comparison FINDINGS: Fluoroscopy was provided for Dr. Chan during the performance of a retrograde evaluation of the keron l collecting system.. Please refer to the procedure report for complete details. Fluoro time: 63.9 seconds IMPRESSION: RADIATION DOSE DELIVERED:
[2019-12-07 12:26] VITALS: BP 122/85; PULSE 54; RESP 14; TEMP 36.6; O2SAT 98
--- NOTE | 2019-12-07 12:27 | W.PM.OP ---
Date of service: 12/07/19 Time of Service: 12:28 Operative Note Operative Note DATE OF PROCEDURE: 12/07/19 PRE-OP DIAGNOSIS: Right ureteral stone PROCEDURE: Cystoscopy, right retrograde pyelogram, right flexible ureteroscopy, holmium laser lithotripsy of right ureteral stone, extraction of stone fragment, insert right ureteral stent SURGEON: Dennys Chan ANESTHESIA: spinal ESTIMATED BLOOD LOSS: 50 PATHOLOGY: other (Stone for chemical analysis) COMPLICATIONS: None Patient was transported to: PACU Patient's condition: stable Implants: 4.8 Jamaican 22 to 30 cm ureteral stent Indications: This is a 54-year-old gentleman who presented to the emergency room earlier this week with right renal colic. He was identified as having a right ureteral stone. Attempts were made at treating the patient conservatively, but he required 2 additional emergency room visits for uncontrolled pain, nausea and vomiting. He presents now for stone manipulation Findings: Right ureteral stone Procedure Description: The patient was brought to the operating room on 12/07/2019. He was given preoperative IV antibiotics. After successful induction of spinal anesthesia, he was placed in the dorsal lithotomy position. His genitalia was prepped and draped. 2% Xylocaine jelly was instilled into the urethra to act as a local anesthetic. A 22 Jamaican rigid cystoscope was passed through the urethra into the bladder. The urethra and bladder were inspected with the 30 degree lens. The pendulous bulbous membranous urethra was all appeared normal. The prostatic urethra showed some mild lateral lobe enlargement but no median lobe. The bladder neck was then entered and the bladder mucosa was inspected. The right ureteral orifice was identified and was cannulated with a 6 Jamaican access catheter. A retrograde pyelogram was obtained by injecting Omnipaque through the access catheter under fluoroscopic guidance. A rather large filling defect was outlined in the proximal ureter. We passed a guidewire through the access catheter above the level of the filling defect. We then passed a dual-lumen catheter over the wire and placed a second wire. We chose 1 of the wires as a working wire and the other is a safety wire. We then passed a ureteral access sheath over the working wire and positioned the sheath tip of the sheath in the proximal ureter. We then passed a flexible ureteroscope through the access sheath up to the level of the stone. The stone was identified but was deemed to be too large to grasp without first treating it with a holmium laser fiber. We utilized a 272 ?m holmium laser fiber and used a combination of both dusting and fracturing settings. We were able to break the stone into 2 fragments. I grasped 1 of the fragments and a ZeroTip stone basket and removed it in its entirety. The other fragment migrated up into the kidney. I had difficulty visualizing the second fragment and was not able to retrieve. We then elected to place a ureteral stent and come back next week for a staged procedure. We passed a 4.8 Jamaican variable length stent over the safety wire. The proximal end of the stent was curled in the renal pelvis and the distal end was curled within the bladder. The positioning of the stent was confirmed both fluoroscopically and cystoscopically. The stone fragment that had been removed was sent to pathology for stone analysis. A belladonna and opium suppository was inserted rectally at the completion of the procedure. The patient tolerated this procedure well. He will return next week for a planned staged procedure.
[2019-12-07 12:35] VITALS: BP 113/78; PULSE 61; RESP 13; TEMP 36.6; O2SAT 99
[2019-12-07 12:40] VITALS: BP 115/71; PULSE 56; RESP 14; TEMP 36.6; O2SAT 98
[2019-12-07] MEDS: Phenazopyridine 200 MG TAB PO (13:14)
[2019-12-07] MEDS: traMADol 50 MG TAB PO (13:14)
[2019-12-07 13:15] VITALS: BP 116/81; PULSE 54; RESP 17; TEMP 36.4; O2SAT 99
[2019-12-14 14:49] LABS: Source: Right Ureter
== END 2019-12-07 14:10 | disposition home or self-care (01) ==
PROVIDERS: PCP Nurse Practitioner; Visit Provider Urology
PROC: (CPT 52356; principal; 2019-12-07 11:00)
DX: N20.1 Calculus of ureter (principal)
CPT/HCPCS: 52356; NC; 74420; 82365; J0744; J1885; J2250; J2405; J3010; Q9967

== ENCOUNTER 2019-12-10 09:16 | Outpatient (CLI) | payer OTHER, SELFPAY ==
[2019-12-11 12:20] LABS: COVID-19 RT-PCR UVMMC Result Negative (Negative)
== END 2019-12-10 09:36 ==
PROVIDERS: PCP Nurse Practitioner; Visit Provider Urology
DX: Z11.59 Encounter for screening for other viral diseases (principal)
CPT/HCPCS: U0003

== ENCOUNTER 2019-12-13 07:05 | Day surgery (SDC) | payer OTHER, SELFPAY ==
[2019-12-13 07:10] VITALS: BP 140/92; PULSE 79; RESP 16; TEMP 36.1; O2SAT 96
[2019-12-13] MEDS: Lactated Ringers 1,000 ML 80 ML IV (07:35)
[2019-12-13] MEDS: CIPROFLOXACIN 400 MG/200 ML BAG 200 MG IVPB (07:35)
--- NOTE | 2019-12-13 08:00 | DI.RAD_ITS ---
EXAM: XR RETROGRADE IN OR CLINICAL HISTORY: RIGHT KIDNEY STONE. TECHNIQUE: Fluoroscopy was provided for the referring physician for guidance with performing a retro grade procedure. COMPARISON: XR RETROGRADE IN OR from 12/07/2019 FINDINGS: A hard copy image shows a lower portion of a stent in the expected location of the right ureter. Pl ease see procedure note for details. FLUORO TIME: 69.2 seconds RADIATION DOSE DELIVERED:
--- NOTE | 2019-12-13 08:01 | W.PM.HP.N ---
Date of service: 12/13/19 Time of Service: 08:01 Assessment and Plan Assessment and plan (1) Calculus of proximal right ureter: Status: Acute Assessment and plan: We will plan on doing cystoscopy, remove his indwelling ureteral stent, run the flexible ureteroscope up to the proximal ureter and collecting system and remove any residual stone fragments. We will have the holmium laser available should we need it. History of Present Illness History of Present Illness Chief Complaint: Right Ureteral Stone Narrative: This is a 54-year-old gentleman who initially presented with a proximal right ureteral stone. He failed conservative management so he was brought to the operating room last week. He underwent flexible ureteroscopy. I fragmented the stone using the holmium laser. I was only able to retrieve one of the two stone fragments before visibility became an issue. We elected to place a ureteral stent and he comes back now for a planned staged procedure to extract the residual fragments. He had some stent discomfort immediately after the original procedure, but has not required pain medications for the past 3 days. He has not had any fevers or chills. Review of Systems Narrative: No fevers or chills No vision change or dysphasia No diabetes or thyroid dysfunction No shortness of breath, cough or hemoptysis No chest pain or palpitations Hx GERD. No hepatitis, ulcers, jaundice, diarrhea or constipation No seizures, strokes or peripheral neuropathy No bleeding disorders or anemia No gout [facility] Medical History (Updated 12/13/19 @ 08:04 by Dennys Chan MD) Asthma Chronic gastroesophageal reflux disease (Acute) 02/16/19 [facility] [place] Gastro. with dyspepsia and odynophagia 03/06/19 EGD [facility] [place] mild chronic nonpsecific gastritis Depression (Chronic 02/10/18) HTN (hypertension) (Chronic) Kidney stone on right side (Acute) Surgical History (Updated 12/13/19 @ 07:14 by Mariam Mitchell) Hx of right knee surgery (Acute) CYST REMOVAL Repair of umbilical hernia Status post laser lithotripsy of ureteral calculus (Acute) Social History Smoking/Tobacco Use Status: Former Tobacco Use Quit Date: 08/08/04 Pack-years: 8 Tobacco: How many years used: 17 Alcohol Intake: current Alcohol Intake frequency: a few times a week Alcohol type: beer and hard liquor Drug use: Never Substance use type: does not use Household members: spouse Housing: house Number of Children: 3 number of grandchildren: 0 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 has been stretching Duration: 15-30 minutes/day Frequency: daily Seatbelt use: always Do you feel safe at home: Yes Do you feel safe in your relationship?: Yes Meds Home Medications and Allergies Home Medications Medication Instructions Recorded Confirmed Type multivitamin 1 cap PO DAILY 09/22/15 12/13/19 History albuterol sulfate 90 mcg/actuation 2 puff INHALATION Q4H PRN #8.5 gm 08/14/18 12/11/19 Rx aerosol inhaler esomeprazole magnesium 20 mg 20 mg PO BID cap 03/28/19 12/13/19 History capsule,delayed release psyllium seed (sugar) 2 tsp PO ONCE gm 03/28/19 12/13/19 History potassium phosphate, monobasic 500 500 mg PO .twice weekly tab 08/08/19 12/13/19 History mg soluble tablet bupropion HCl 200 mg tablet,12 hr See Rx Instructions PO DAILY #145 09/24/19 12/13/19 Rx sustained-release tab lisinopril 20 mg tablet 20 mg PO DAILY #90 tab 09/24/19 12/13/19 Rx montelukast 10 mg tablet 10 mg PO DAILY #90 tab-cap 09/24/19 12/13/19 Rx ciprofloxacin HCl 500 mg PO BID #10 tab 12/04/19 12/13/19 Rx prochlorperazine maleate 5 mg 5 mg PO QID PRN #20 tab 12/04/19 12/13/19 Rx tablet tamsulosin 0.4 mg capsule 0.4 mg PO DAILY #10 cap 12/04/19 12/13/19 Rx tramadol [Ultram] 50 mg PO .Q8H PRN 12/07/19 12/13/19 History Allergies Allergy/AdvReac Type Severity Reaction Status Date / Time Penicillins Allergy Intermediate rash and Verified 12/13/19 06:54 exacerbates asthma Exam Narrative Exam Narrative: He is in no current distress. He is cooperative. His vital signs are documented elsewhere His chest wall motion is normal. His lungs are clear. Cardiac exam shows a regular rate and rhythm Abdomen is soft with no guarding or rebound tenderness He is awake and alert Results Last Vital Signs Temp 36.1 C L 12/13/19 07:10 Pulse 79 12/13/19 07:10 Resp 16 12/13/19 07:10 BP 140/92 H 12/13/19 07:10 Pulse Ox 96 12/13/19 07:10 COVID-19 Screening In the past 14 days, have you traveled outside of [place] or [place]?: NO
[2019-12-13] MEDS: Lidocaine 2% Jelly 6 ML SYR (08:57)
[2019-12-13] MEDS: Omnipaque 300 MG/ML 50 ML BTL (09:03)
--- NOTE | 2019-12-13 09:35 | W.PM.DSUDISC ---
Discharge Plan Disposition Patient Disposition: HOME Condition: Stable Discharge Details Reason For Visit: (R) URETERAL STONE Attending Provider: Dennys Chan Primary Care Provider: Analia Lara Home Meds and New Rx's Prescriptions: New ketorolac 10 mg tablet 10 mg PO Q6H PRN (Reason: pain) Qty: 15 RF: 0 No Action tamsulosin 0.4 mg capsule 0.4 mg PO DAILY Qty: 10 RF: 0 albuterol sulfate 90 mcg/actuation HFA aerosol inhaler 2 puff Inhalation Q4H PRN Qty: 8.5 RF: 6 esomeprazole magnesium 20 mg capsule,delayed release(DR/EC) 20 mg PO BID RF: 0 psyllium seed (sugar) Powder 2 tsp PO ONCE RF: 0 K-Phos Original 500 mg tablet,soluble 500 mg PO .twice weekly RF: 0 bupropion HCl 200 mg tablet sustained-release 12 hr See Rx Instructions PO DAILY Qty: 145 RF: 3 montelukast [Singulair] 10 mg tablet 10 mg PO DAILY Qty: 90 RF: 3 lisinopril 20 mg tablet 20 mg PO DAILY Qty: 90 RF: 0 prochlorperazine maleate [Compazine] 5 mg tablet 5 mg PO QID PRN (Reason: nausea and vomiting) Qty: 20 RF: 0 multivitamin 1 EACH capsule 1 cap PO DAILY RF: 0 ciprofloxacin HCl 500 mg tablet 500 mg PO BID Qty: 10 RF: 0 tramadol [Ultram] 50 mg tablet 50 mg PO .Q8H PRN RF: 0 Discharge Instructions Additional Instructions: Followup early next week for stent removal (tell office there is a string on the stent) F/U appt with me in 6 to 8 weeks for renal ultrasound no need to strain urine Activity:: Activity as Tolerated Shower/Bathe:: 24 hours Diet:: As Tolerated Discharge Orders Discharge Orders: Discharge Order (Routine); Ordered 12/13/19 Ordered By: Dennys Chan DS: Diagnosis Discharge Diagnosis (1) Calculus of proximal right ureter: Status: Acute
[2019-12-13 09:41] VITALS: BP 104/69; PULSE 73; RESP 19; TEMP 36.8; O2SAT 95
--- NOTE | 2019-12-13 09:41 | W.PM.OP ---
Date of service: 12/13/19 Time of Service: 09:41 Operative Note Operative Note DATE OF PROCEDURE: 12/13/19 PRE-OP DIAGNOSIS: Right ureteral stone POST-OP DIAGNOSIS: same PROCEDURE: Cystoscopy, remove right ureteral stent, right retrograde pyelogram, right ureteroscopy with stone extraction, insert right ureteral stent SURGEON: Dennys Chan ANESTHESIA: spinal ESTIMATED BLOOD LOSS: 50 PATHOLOGY: other (Stone for chemical analysis) Patient was transported to: PACU Patient's condition: stable Implants: 4.8 Estonian by 22 to 30 cm right ureteral stent Indications: This is a 54-year-old gentleman who was previously seen with renal colic. He was found to have a right ureteral stone. He failed conservative management, so he underwent flexible ureteroscopy. We fractured his stone, but were not able to extract all fragments. The stent was placed. He returns now to have the stent removed and residual stone fragments extracted. Findings: Stone fragments in renal pelvis Procedure Description: The patient was brought to the operating room on 12/13/2019. He was given preoperative IV antibiotics. After successful induction of spinal anesthesia he was placed in the dorsal lithotomy position. His genitalia is prepped and draped. 2% Xylocaine jelly was instilled into the urethra to act as a local anesthetic. A 22 Estonian rigid cystoscope was passed through the urethra into the bladder. Urethra and bladder were inspected with a 30 degree lens. The pendulous bulbous membranous urethra was all appeared normal with no strictures. The prostatic urethra showed minimal lateral lobe enlargement and no significant median lobe. The bladder neck was entered and the bladder mucosa was inspected. The stent could be seen protruding from the right ureteral orifice. The stent was grasped and alligator forceps and removed to the level of the urethral meatus. I attempted to pass a guidewire through the lumen of the stent, but the wire did not pass freely. I then inserted a 6 Estonian access catheter and did a retrograde pyelogram. There was some extravasation of urine around the ureter. I then introduced a semirigid ureteroscope to identify the true lumen of the ureter. I passed a guidewire up the ureter and removed the ureteroscope. We then passed the dual-lumen catheter over the wire and injected Omnipaque through the dual-lumen catheter. This documented that we were now within the collecting system. A second wire was positioned and the dual-lumen catheter was removed. We passed a ureteral access sheath over 1 of the wires. We left the other wire in place as a safety wire. We then passed the flexible ureteroscope up through the access sheath into the renal pelvis. We found 2 stone fragments there in the renal pelvis and grasped them and a ZeroTip stone basket. The stones were then removed in their entirety. We removed the access sheath as well. A repeat retrograde pyelogram showed some filling defects in the proximal ureter. These likely corresponded to blood clots seen ureteroscopically. We elected to replace his ureteral stent until the blood clots passed. We chose a 4.8 Estonian variable length stent and left the safety string in place. The stent was placed with the proximal end curled in the renal pelvis and the distal end curled within the bladder. The safety string was brought through the urethra and taped to the dorsum of the penis. The positioning of the stent was confirmed fluoroscopically. The patient tolerated the procedure well with no complications.
[2019-12-13 09:46] VITALS: BP 98/70; PULSE 73; RESP 16; TEMP 36.8; O2SAT 94
[2019-12-13 09:51] VITALS: BP 105/69; PULSE 83; RESP 13; TEMP 36.8; O2SAT 96
[2019-12-13 09:56] VITALS: BP 99/68; PULSE 69; RESP 15; TEMP 36.7; O2SAT 95
--- NOTE | 2019-12-13 09:59 | W.PM.DSUDISC ---
Discharge Plan Disposition Patient Disposition: HOME Condition: Stable Discharge Details Reason For Visit: (R) URETERAL STONE Attending Provider: Dennys Chan Primary Care Provider: Analia Lara Home Meds and New Rx's Prescriptions: New ketorolac 10 mg tablet 10 mg PO Q6H PRN (Reason: pain) Qty: 15 RF: 0 tramadol 50 mg tablet 50 mg PO Q6H PRN (Reason: pain) Qty: 20 RF: 0 No Action tamsulosin 0.4 mg capsule 0.4 mg PO DAILY Qty: 10 RF: 0 albuterol sulfate 90 mcg/actuation HFA aerosol inhaler 2 puff Inhalation Q4H PRN Qty: 8.5 RF: 6 esomeprazole magnesium 20 mg capsule,delayed release(DR/EC) 20 mg PO BID RF: 0 psyllium seed (sugar) Powder 2 tsp PO ONCE RF: 0 K-Phos Original 500 mg tablet,soluble 500 mg PO .twice weekly RF: 0 bupropion HCl 200 mg tablet sustained-release 12 hr See Rx Instructions PO DAILY Qty: 145 RF: 3 montelukast [Singulair] 10 mg tablet 10 mg PO DAILY Qty: 90 RF: 3 lisinopril 20 mg tablet 20 mg PO DAILY Qty: 90 RF: 0 prochlorperazine maleate [Compazine] 5 mg tablet 5 mg PO QID PRN (Reason: nausea and vomiting) Qty: 20 RF: 0 multivitamin 1 EACH capsule 1 cap PO DAILY RF: 0 ciprofloxacin HCl 500 mg tablet 500 mg PO BID Qty: 10 RF: 0 tramadol [Ultram] 50 mg tablet 50 mg PO .Q8H PRN RF: 0 Discharge Instructions Additional Instructions: Followup early next week for stent removal (tell office there is a string on the stent) F/U appt with me in 6 to 8 weeks for renal ultrasound no need to strain urine Activity:: Activity as Tolerated Shower/Bathe:: 24 hours Diet:: As Tolerated Discharge Orders Discharge Orders: Discharge Order (Routine); Ordered 12/13/19 Ordered By: Dennys Chan DS: Diagnosis Discharge Diagnosis (1) Calculus of proximal right ureter: Status: Acute
[2019-12-13 10:50] VITALS: BP 103/68; PULSE 60; RESP 18; TEMP 36.6; O2SAT 95
[2019-12-18 23:57] LABS: Source: Right Ureter
== END 2019-12-13 11:24 | disposition home or self-care (01) ==
PROVIDERS: PCP Nurse Practitioner; Visit Provider Urology
PROC: (CPT 52352; principal; 2019-12-13 08:30)
DX: N20.1 Calculus of ureter (principal); Z96.0 Presence of urogenital implants
CPT/HCPCS: 52352; 52332; 76000; NC; 74420; 82365; J0744; J1885; J2405; J3010; Q9967

== ENCOUNTER 2020-01-25 02:02 | Outpatient (CLI) | payer OTHER, SELFPAY ==
--- NOTE | 2020-01-25 06:30 | DI.US_ITS ---
EXAM: US RENAL CLINICAL HISTORY: r/o hydronephrosis after ureteroscopy, calculus of proximal rt ureter. TECHNIQUE: Chu scale, color and spectral Doppler were used. COMPARISON: CT CT ABDOMEN PELVIS W from 11/29/[address] ABDOMEN PELVIS WO from 12/04/2019 FINDINGS: Renal size in cm: Right: 11.8 left: 11.5 Echogenicity: Normal Hydronephrosis: No Cyst or mass: 1.6 centimeter cyst mid left kidney. Nephrolithiasis: No stones were visible by ultrasound. Tiny right renal calculi were visible on prio r CT. Other findings: None Bladder:Normal Prevoid vol:70 cc Postvoid vol:7 cc The right ureteral jet was not seen. The left ureteral jet was visualized. Prostate volume 18 cc. IMPRESSION: No evidence of right hydronephrosis. DATA REPOSITORY:
== END 2020-01-25 02:22 ==
PROVIDERS: PCP Nurse Practitioner; Visit Provider Urology
DX: N20.1 Calculus of ureter (principal); N28.1 Cyst of kidney, acquired
CPT/HCPCS: 76770

== ENCOUNTER 2020-02-05 03:02 | Outpatient (CLI) | payer OTHER, SELFPAY ==
[2020-02-05 09:30] LABS: ALT 41 U/L (16-63); AST 33 U/L (15-37); Albumin 3.6 g/dL (3.4-5.0); Alkaline Phosphatase 79 U/L (46-116); Anion Gap 8.1 mmol/L (3-11); BUN 11 mg/dL (7-18); Bilirubin, Total 0.8 mg/dL (0.2-1.0); CO2 27.9 mmol/L (21.0-32.0); CREATININE 1.01 mg/dL (0.70-1.30); Calcium 8.7 mg/dL (8.5-10.1); Calculated LDL 85 mg/dL (<100); Chloride 105 mmol/L (98-107); Cholesterol 147 mg/dL (<200); Glucose 107 mg/dL (74-106); HDL Cholesterol 52 mg/dL (40-60); Potassium 3.7 mmol/L (3.5-5.1); Sodium 141 mmol/L (136-145); Total Protein 5.9 g/dL (6.4-8.2); Triglyceride 53 mg/dL (<150)
== END 2020-02-05 03:22 ==
PROVIDERS: PCP Nurse Practitioner; Visit Provider Nurse Practitioner
DX: I10 Essential (primary) hypertension (principal)
CPT/HCPCS: 36415; 80053; 80061

== ENCOUNTER 2020-04-30 16:32 | Outpatient (REF) | payer OTHER, SELFPAY ==
[2020-04-30 20:44] LABS: Anion Gap 6.2 mmol/L (3-11); BUN 14 mg/dL (7-18); CO2 27.8 mmol/L (21.0-32.0); CREATININE 0.99 mg/dL (0.70-1.30); Calcium 9.3 mg/dL (8.5-10.1); Chloride 106 mmol/L (98-107); Glucose 87 mg/dL (74-106); Potassium 4.3 mmol/L (3.5-5.1); Sodium 140 mmol/L (136-145)
== END 2020-04-30 16:52 ==
LOC: LBO 16:32
PROVIDERS: PCP Nurse Practitioner; Visit Provider Nurse Practitioner Adult Health
DX: I10 Essential (primary) hypertension (principal)
CPT/HCPCS: 80048

== ENCOUNTER 2021-05-29 03:03 | Outpatient (CLI) | payer OTHER, SELFPAY ==
[2021-05-29 12:30] LABS: HCT 45.4 % (40.0-50.0); HGB 15.5 g/dL (13.5-17.5); MCHC 34.1 % (32.0-36.0); MCV 87.8 fL (80-95); MPV 10.4 fL (8.0-11.0); Platelet Count 217 10^3/uL (130-400); RBC 5.17 10^6/uL (4.36-5.78); RDW 11.8 % (11.8-14.1); RDW-SD 38.1 fL; WBC 7.35 10^3/uL (4.4-10.8)
[2021-05-29 14:18] LABS: BUN 12 mg/dL (7-18); CREATININE 1.1 mg/dL (0.70-1.30); Calcium 8.8 mg/dL (8.5-10.1); Cholesterol 147 mg/dL (<200); Glucose 103 mg/dL (74-106)
[2021-05-29 14:19] LABS: ALT 53 U/L (16-63); AST 34 U/L (15-37); Albumin 3.8 g/dL (3.4-5.0); Alkaline Phosphatase 78 U/L (46-116); Anion Gap 6.6 mmol/L (3-11); Bilirubin, Total 1.7 mg/dL (0.2-1.0); CO2 29.4 mmol/L (21.0-32.0); Calculated LDL 76 mg/dL (<100); Chloride 105 mmol/L (98-107); HDL Cholesterol 63 mg/dL (40-60); Potassium 4.5 mmol/L (3.5-5.1); Sodium 141 mmol/L (136-145); Total Protein 6.2 g/dL (6.4-8.2); Triglyceride 40 mg/dL (<150)
== END 2021-05-29 03:04 | disposition home or self-care (01) ==
LOC: LOS 03:03
PROVIDERS: PCP Nurse Practitioner; Visit Provider Nurse Practitioner
DX: I10 Essential (primary) hypertension (principal)
CPT/HCPCS: 36415; 80053; 80061; 85027

== ENCOUNTER → 2022-01-14 01:47 | Outpatient (CLI) | payer OTHER, SELFPAY ==
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
== END ==
PROVIDERS: PCP Nurse Practitioner; Visit Provider Nurse Practitioner
DX: G89.29 Other chronic pain (principal); R20.0 Anesthesia of skin; R26.2 Difficulty in walking, not elsewhere classified; Z87.828 Personal history of other (healed) physical injury and trauma; M47.817 Spondylosis without myelopathy or radiculopathy, lumbosacral region; M48.061 Spinal stenosis, lumbar region without neurogenic claudication; M51.26 Other intervertebral disc displacement, lumbar region
CPT/HCPCS: 72148

== ENCOUNTER 2022-07-06 13:28 | Outpatient (REF) | payer OTHER, SELFPAY ==
[2022-07-07 19:24] LABS: COVID-19 RT-PCR UVMMC Result Negative (Negative)
[2022-07-07 19:29] LABS: Influenza A RNA Result Positive (Negative); Influenza B RNA Result Negative (Negative); RSV RNA Result Negative (Negative)
== END 2022-07-06 13:29 | disposition home or self-care (01) ==
LOC: LBN 13:28
PROVIDERS: PCP Nurse Practitioner; Visit Provider Student in an Organized Health Care Education/Training Program
DX: R05.9 Cough, unspecified (principal); Z20.828 Contact with and (suspected) exposure to other viral communicable diseases; Z20.822 Contact with and (suspected) exposure to COVID-19
CPT/HCPCS: 87631; U0003

== ENCOUNTER 2022-12-22 04:05 | Outpatient (CLI) | payer OTHER, SELFPAY ==
[2022-12-22 07:30] LABS: Abs Immature Grans 0.02 10^3/uL (0.0-0.06); Absolute Basophil Count 0.07 10^3/uL (0.0-0.2); Absolute Eosinophil Count 0.17 10^3/uL (0.0-0.7); Absolute Lymphocyte Count 2.33 10^3/uL (1.2-3.4); Absolute Neutrophil Count 2.74 10^3/uL (1.2-6.7); Basophils % 1.2; Eosinophils % 2.9; HCT 44.7 % (40.0-50.0); HGB 15.3 g/dL (13.5-17.5); Immature Grans % 0.3; MCH 29.9 pg (27.0-33.0); MCHC 34.2 % (32.0-36.0); MCV 87 fL (80-95); Monocytes % 8.6; Platelet Count 209 10^3/uL (130-400); RBC 5.12 10^6/uL (4.36-5.78); RDW 12.3 % (11.8-14.1); RDW-SD 39.5 fL; WBC 5.83 10^3/uL (4.4-10.8)
[2022-12-22 08:10] LABS: ALT 62 U/L (16-63); AST 37 U/L (15-37); Albumin 3.5 g/dL (3.4-5.0); Alkaline Phosphatase 75 U/L (46-116); Anion Gap 5.9 mmol/L (3-11); BUN 12 mg/dL (7-18); Bilirubin, Total 1.1 mg/dL (0.2-1.0); CO2 29.1 mmol/L (21.0-32.0); Calcium 8.1 mg/dL (8.5-10.1); Calculated LDL 81 mg/dL (<100); Chloride 106 mmol/L (98-107); Cholesterol 149 mg/dL (<200); Estimated GFR 87.78 (mL/min/1.73m2); Glucose 104 mg/dL (74-106); HDL Cholesterol 62 mg/dL (40-60); Potassium 3.5 mmol/L (3.5-5.1); Sodium 141 mmol/L (136-145); Total Protein 6.1 g/dL (6.4-8.2); Triglyceride 31 mg/dL (<150)
== END 2022-12-22 04:06 | disposition home or self-care (01) ==
LOC: LBO 04:05
PROVIDERS: PCP Nurse Practitioner; Visit Provider Nurse Practitioner
DX: I10 Essential (primary) hypertension (principal); F32.9 Major depressive disorder, single episode, unspecified
CPT/HCPCS: 36415; 80053; 80061; 85025

== ENCOUNTER 2023-03-15 08:01 | Day surgery (SDC) | payer OTHER, SELFPAY ==
--- NOTE | 2023-03-14 14:40 | PDOC.DSDIS_ITS ---
Date of service: 03/15/23 Time of Service: 09:52 Discharge Plan Disposition Patient Disposition: Home Discharge Details Reason For Visit: colon scope Attending Provider: Margaret Burgess Primary Care Provider: Analia Lara Home Meds and New Rx's Prescriptions: Continued pneumococcal 23-vitaliy ps vaccine 25 mcg/0.5 mL solution 0.5 ml IM ONCE Qty: 0.5 0RF lisinopril 40 mg tablet 40 mg PO DAILY Qty: 90 3RF albuterol sulfate 90 mcg/actuation HFA aerosol inhaler 2 puff Inhalation Q4H PRN Qty: 18 6RF bupropion HCl 200 mg tablet sustained-release 12 hr See Rx Instructions PO DAILY Qty: 145 3RF Dose Instruction: PO DAILY; Rx Instructions: 200mg daily. K-Phos Original 500 mg tablet,soluble 500 mg PO .twice weekly Rx Instructions: 03/27/19 [facility] [place] Gastro psyllium seed (sugar) Powder 2 tsp PO DAILY Rx Instructions: 03/27/19 [facility] [place] Gastro montelukast 10 mg tablet See Rx Instructions .ROUTE .COMPLEX Qty: 90 3RF Dose Instruction: TAKE ONE TABLET BY MOUTH EVERY DAY Rx Instructions: TAKE ONE TABLET BY MOUTH EVERY DAY multivitamin 1 EACH capsule 1 cap PO DAILY Discontinued polyethylene glycol 3350 17 gram/dose powder 238 g PO ONCE Qty: 238 0RF Rx Instructions: take per colonoscopy instructions bisacodyl [Dulcolax (bisacodyl)] 5 mg tablet,delayed release (DR/EC) 5 mg PO ONCE Qty: 4 0RF Rx Instructions: take per colonoscopy instructions Discharge Instructions Additional Instructions: DSU Colonoscopy Post- Op Instructions Instructions for Everyone who is given Anesthesia: For your safety, please do the following for the next twenty-four (24) hours: *Do Not operate a motor vehicle (car, truck, motorcycle, etc.) *Do Not drink alcoholic beverages or use any recreational drugs for the first 24 hours or while taking pain medications. The medications in your body may have a reaction that can be dangerous. *Do Not make any important decisions or sign any important papers. Findings: x1 small polyp Follow up: My office will send a letter in 2 to 3 weeks time with the type of polyp it was and when we want you to repeat the colonoscopy. 1. No lifting over 20 pounds or strenuous activity for the first 24 hours after your procedure. After 24 hours there are no restrictions on your activity but you may feel fatigued for a few days. 2. After you arrive home you may have a light meal and return to your normal diet as you can tolerate it without feeling sick to your stomach. 3. You may have a bloated, gaseous feeling in your belly (abdomen) after a colonoscopy. Passing gas and belching will help. Walking or lying down on your left side with your knees flexed may relieve the discomfort. Call the office at [phone] (Office) or [phone] (Hospital) right away if you notice any of the following: a.Vomiting of blood or ?coffee ground stools?. b.Rectal bleeding 1Tbsp, blood clots or continuous bleeding. c.Severe belly (abdominal) pain. d.A hard distended belly (abdomen) and an inability to pass gas. 4. Please don?t expect to have a normal BM (bowel movement) for 2-3 days after your procedure. 5. If there are questions regarding the findings of your procedure, please contact your doctor 6. If you are unable to contact your doctor with a problem, contact the hospital at [phone]. 7. Continue all your regular medications unless directed otherwise. I understand the above instructions and have no questions. Signature of Patient or Adult Escort Name of Responsible Adult Escort Signature of Nurse Date/Time Activity:: See above Diet:: See above Discharge Orders Discharge Orders: Discharge Order (Routine); Ordered 03/15/23 Ordered By: Margaret Burgess DS: Diagnosis Discharge Diagnosis (1) Tubular adenoma: Status: Chronic Asessment and Plan: Post [place] Note/Eval The patient is seen and examined after their colonoscopy.? The patient has been able to pass gas.? They are not having abdominal pain.? They have been able to tolerate liquids and a snack.? They do not have any nausea or vomiting.? They are not having any chest pain or shortness of breath.??? They are not having any rectal bleeding. Their vital signs have been stable-see nursing notes. We discussed findings during their colonoscopy, and any biopsies that were done/polyps that were removed. The patient will be sent a letter with any biopsy results, and when to repeat the colonoscopy.-see discharge instructions. Patient was given explicit instructions to follow-up regarding colonoscopy-refer to discharge instructions.? We reviewed resumption of medications. Patient verbalized understanding and discharged in stable and satisfactory condition- See nursing notes. (2) Dysphagia: Status: Acute (3) Asthma: Status: Acute (4) HTN (hypertension): Status: Chronic (5) Chronic gastroesophageal reflux disease: Status: Acute (6) Asthma:
--- NOTE | 2023-03-14 14:40 | W.COLOREPORT ---
Date of service: 03/15/23 Time of Service: 13:52 Colonoscopy Report Date of procedure: 03/15/23 Pre-op diagnosis general: Adenomatous polyps Post-op diagnosis procedure note: same Surgeon: Margaret Burgess Anesthesia Type: General:No Airway Estimated blood loss (mL): 1 Pathology: other Complications: None Disposition: same day Prep: Miralax/Dulcolax Findings: 16 Procedure Description: After informed consent was obtained the patient was taken to the procedure room and placed in a left decubitous position. Monitors were applied and a time out was done. The patients name, date of , procedure, allergies to medications and metal in their body was reviewed. The patient was then sedated. Once sedated and comfortable a rectal exam was done. External exam was normal. Internal exam revealed a normal sphincter tone and no palpable masses. The scope was then introduced and retrofelexed. No internal hemorrhoids were identified/internal hemorrhoidal tags noted. The scope was then advanced to the cecum w/out difficulty. The TI and appendiceal orifice were identified. The prep was BBPS 2 in all segments for total of 6. The scope was then slowly retracted over 16 minutes back into the rectum. there are no diverticula or AVMs noted today. He has a the 5 mm flat polyp at 70 cm. This is removed with a cold biting forcep. All specimen is retrieved and no bleeding is noted. Scope was removed and the patient was woken up and taken back to Same day surgery in stable condition. The patient tolerated the procedure well and there were no immediate complications. Follow up: The patient should follow up in ~7 years unless they develop changes in bowel habits or other new gastrointestinal complaints.
[2023-03-15 08:41] VITALS: BP 140/91; PULSE 78; RESP 16; TEMP 36.2; O2SAT 100
[2023-03-15] MEDS: Lactated Ringers 1,000 ML 80 ML IV (08:45)
--- NOTE | 2023-03-15 08:52 | W.ANESPRE ---
General Info Date of Service Date Performed: 03/15/23 Height: 5 ft 10 in Weight: 89.8 kg Body Mass Index (BMI): 28.4 Surgical Procedure: Operation Date: 03/15/23 09:35 Proposed Procedure Side Surgeon howard Burgess, DO Meds Allergies and Home Medications Allergies Allergy/AdvReac Type Severity Reaction Status Date / Time Penicillins Allergy Intermediate rash and Verified 03/15/23 08:28 exacerbates asthma Home Medication Medication Instructions Recorded multivitamin 1 cap PO DAILY 09/22/15 potassium phosphate, monobasic 500 500 mg PO .twice weekly 08/08/19 mg soluble tablet (K-Phos Original) psyllium seed (sugar) oral powder 2 tsp PO DAILY 01/29/20 albuterol sulfate 90 mcg/actuation 2 puff inhalation Q4H PRN #18 grams 05/13/22 aerosol inhaler lisinopril 40 mg tablet 40 mg PO DAILY #90 tabs 05/13/22 montelukast 10 mg tablet See Rx Instructions .Route 10/25/22 .COMPLEX #90 tabs bupropion HCl 200 mg tablet,12 hr See Rx Instructions PO DAILY #145 12/08/22 sustained-release tabs Current Visit Medications: Current Medications Generic Name Dose Route Start Last Admin Trade Name Freq PRN Reason Stop Dose Admin Hyoscyamine Sulfate 0.125 mg 03/15/23 05:43 Hyoscyamine 0.125 Mg Sl/Oral/Chew SL 04/14/23 05:42 DIRECTED PRN Ringer's Solution 1,000 mls @ 80 mls/hr 03/15/23 06:00 03/15/23 08:45 IV 04/13/23 23:59 80 mls/hr INFUSION ESMER Administration IV Miscellaneous Supplies 1 each 03/15/23 06:00 Iv Access IV 04/13/23 23:59 DIRECTED ESMER Ondansetron HCl 4 mg 03/15/23 05:43 Ondansetron 4 Mg/2 Ml Vial IVP 04/14/23 05:42 Q4H PRN PRN Nausea / Vomiting Sodium Chloride 0 ml 03/15/23 06:00 Normal Saline Flush 10 Ml Syr IV 04/13/23 23:59 PRN PRN Sodium Chloride 0 ml 03/15/23 06:00 Normal Saline 10 Ml Vial IJ 04/13/23 23:59 DIRECTED PRN Sterile Water 0 ml 03/15/23 06:00 Water,Injection,Sterile 10 Ml Vial IJ 04/13/23 23:59 DIRECTED PRN PFSH Active Problems Active Problems: Problem Status Onset Code Depression 02/10/18 F32.9 Dysphagia 02/10/18 R13.10 Asthma 02/10/18 J45.909 Chronic gastroesophageal reflux disease K21.9 HTN (hypertension) I10 Calculus of proximal right ureter N20.1 Tubular adenoma D36.9 Encounter for screening colonoscopy Z12.11 Medical History Medical History Asthma Kidney stone on right side Medical History Comments:: Per pt. states he doesn't need a lot of anesthesia, He's a light weight Surgical History Surgical History (Updated 03/15/23 @ 08:29 by Ambreen Nick) History of colonoscopy Hx of right knee surgery CYST REMOVAL Repair of umbilical hernia Status post laser lithotripsy of ureteral calculus Tobacco Smoking/Tobacco Use Status: Former Tobacco Use Passive smoking exposure: No Alcohol Alcohol Intake: current Alcohol intake frequency: 0-2 drinks per day Alcohol type: wine and other Substance Use Substance use: Never Substance use type: does not use Vital Signs and Lab Results Vital Signs Most Recent Vital Signs in EMR: Most Recent Vital Signs Temp Pulse Resp BP Pulse Ox 36.2 C L 78 16 140/91 H 100 03/15/23 08:41 03/15/23 08:41 03/15/23 08:41 03/15/23 08:41 03/15/23 08:41 Lab Results Blood Type / Crossmatch: No Data to Display Complete Blood Count: No Data to Display Complete Metabolic Panel: No Data to Display Liver Function Panel: No Data to Display Coagulation Panel: No Data to Display Cardiac Panel: No Data to Display Arterial Blood Gas: No Data to Display Venous Blood Gas: No Data to Display Pancreas Panel: No Data to Display Thyroid Panel: No Data to Display Infectious Disease: No Data to Display Blood Cultures: No Data to Display Toxicology Panel: No Data to Display Anesthesia Assessment and Plan Anesthesia History Personal History: Delayed Emergence Family History: No Family History of Anesthesia Complications Exercise Tolerance Exercise Tolerance: Metabolic Equivalents>4 Pertinent Negatives Pertinent Negatives: No Symptoms of GERD, No Major Cardiovascular Symptoms or Complaints and No Major Pulmonary Symptoms or Complaints Cardiac & Pulmonary Exam Cardiac Exam: Normal S1/S2 Heart Sounds Pulmonary Exam: Clear Bilateral Breath Sounds Implantable Cardiac Device Does patient have a Pacemaker or an ICD?: No Airway Exam Known Difficult Airway: No Mallampati Class: 2 Mouth Opening: Normal (> 3cm) Thyromental Distance: Greater than 3 cm Neck Range of Motion: Full ROM Neck Circumference: Normal Teeth Condition: Normal Dentition ASA Classification ASA Score: ASA 2 Emergency Case?: No NPO Status NPO Status: NPO Clears >2 hours, Solids >8 hours Anesthesia Plan Resuscitation Status: Full Code Anesthesia Technique: General Anesthesia Airway Planned: Natural Airway Monitors Used: Standard Monitors
[2023-03-15 08:55] VITALS: BMI 28.4
--- NOTE | 2023-03-15 09:24 | BOWEL_PTH ---
PATIENT: Candelario Larry LOC: [facility] U#:[id number] AGE/SX: 57/M ROOM: RE03/15/[address]: Margaret Burgess : 1965 BED: DIS: 03/15/2023 SPEC #: [id number] RECD: 03/15/23 13:07 STATUS: [facility] #: [id number] DIAMOND: 03/15/23 09:[address]: Margaret Burgess DEPT: Surgical Specimen RECD BY: Ingrid Everett ENTERED: 03/15/23 13:08 SP TYPE: Bowel OTHR DR: Analia Lara APRN Tissues: 1 - BIOPSY BOWEL Procedures: GROSS AND MICRO LEVEL 4 Comments: [id number]
[2023-03-15 09:46] VITALS: BP 111/90; PULSE 71; RESP 17; TEMP 36.6; O2SAT 96
[2023-03-15 10:09] VITALS: BP 113/77; PULSE 58; RESP 16; TEMP 36.4; O2SAT 97
--- NOTE | 2023-03-15 11:01 | W.ANESPOSTOP ---
Postoperative Evaluation Date, Time and Location Date Performed: 03/15/23 Time Performed: 11:01 Patient Location: Day Surgery Unit Vital Signs Most Recent Imported Vital Signs: Most Recent Vital Signs Temp Pulse Resp BP Pulse Ox 36.4 C L 58 L 16 113/77 97 03/15/23 10:09 03/15/23 10:09 03/15/23 10:09 03/15/23 10:09 03/15/23 10:09 Pain Score Most Recent Pain Score: Most Recent Pain Score Pain Level 0 03/15/23 09:46 Assessment Mental Status: Awake (Alert & Oriented to Patient Baseline) Airway and Respiratory Function: Patent airway with normal (patient baseline) respiratory exam Cardiovascular Function: Hemodynamically Stable Hydration Status: Adequately Hydrated Nausea & Vomiting: No Nausea or Vomiting Pain: Pt. Denies Any Pain Peripheral Nerve Block: Patient did not receive a nerve block
== END 2023-03-15 11:31 | disposition home or self-care (01) ==
PROVIDERS: PCP Nurse Practitioner; Visit Provider Surgery
PROC: 0DJD8ZZ Inspection of Lower Intestinal Tract, Via Natural or Artificial Opening Endoscopic (ICD-10-PCS; CPT 45378; principal; 2023-03-15 09:30)
DX: Z12.11 Encounter for screening for malignant neoplasm of colon (principal); D12.4 Benign neoplasm of descending colon; Z86.010 Personal history of colon polyps; I10 Essential (primary) hypertension; F32.A Depression, unspecified
CPT/HCPCS: 45380; 88305

== ENCOUNTER → 2023-09-30 15:40 | Outpatient (CLI) | payer OTHER, SELFPAY ==
--- NOTE | 2023-09-30 15:40 | DI.RAD_ITS ---
Exam(s) XR ABDOMEN FLAT PLATE EXAM: 2D digital imaging was performed. CLINICAL HISTORY: eval flank pain, possible kidney stone, H10.9, Z87.442. COMPARISON: CT CT ABDOMEN PELVIS WO from 12/04/2019 TECHNIQUE: Supine views of the abdomen performed. FINDINGS: BOWEL GAS PATTERN: Nondistended. Normal quantity of stool. CALCIFICATIONS: The right kidney is partially obscured by overlying stool. No calcifications are vis ible. No calcification seen along the course of the ureters or bladder. OSSEOUS STRUCTURES: Normal for age. OTHER FINDINGS: None. IMPRESSION: 1. Nonobstructive bowel gas pattern. 2. No radiopaque calculi. DATA REPOSITORY: RADIATION DOSE DELIVERED:
== END ==
PROVIDERS: PCP Nurse Practitioner; Visit Provider Student in an Organized Health Care Education/Training Program
DX: R10.30 Lower abdominal pain, unspecified (principal); Z87.442 Personal history of urinary calculi
CPT/HCPCS: 74018

== ENCOUNTER 2024-11-29 01:41 | Outpatient (CLI) | payer BC, SELFPAY ==
[2024-11-29 07:27] LABS: HCT 44.1 % (40.0-50.0); HGB 15.3 g/dL (13.5-17.5); MCH 29.5 pg (27.0-33.0); MCHC 34.7 % (32.0-36.0); MCV 85 fL (80-95); MPV 9.8 fL (8.0-11.0); Platelet Count 236 10^3/uL (130-400); RBC 5.19 10^6/uL (4.36-5.78); RDW 11.8 % (11.8-14.1); RDW-SD 36.3 fL; WBC 6.64 10^3/uL (4.4-10.8)
[2024-11-29 08:51] LABS: ALT 46 U/L (16-63); AST 36 U/L (15-37); Albumin 3.7 g/dL (3.4-5.0); Alkaline Phosphatase 89 U/L (46-116); Anion Gap 4.6 mmol/L (3-11); BUN 17 mg/dL (7-18); CO2 31.4 mmol/L (21.0-32.0); Calcium 8.8 mg/dL (8.5-10.1); Calculated LDL 74 mg/dL (<100); Chloride 103 mmol/L (98-107); Cholesterol 127 mg/dL (<200); Glucose 109 mg/dL (74-106); HDL Cholesterol 48 mg/dL (>or=40); Potassium 3.3 mmol/L (3.5-5.1); Sodium 139 mmol/L (136-145); TSH (W/Ref FT4) 1.06 uIU/mL (0.36-3.74); Total Protein 6.4 g/dL (6.4-8.2); Triglyceride 27 mg/dL (<150); Vitamin B12 927 pg/mL (193-986); Vitamin D 25 Total 67 ng/mL (30-100)
[2024-11-29 09:02] LABS: Bilirubin, Total 0.9 mg/dL (0.2-1.0)
[2024-11-30 11:02] LABS: Lyme Ab w Rflx to Lyme Confirm Negative (Negative)
[2024-12-02 15:39] LABS: Anaplasma phagocytophilum Negative (Negative); B. miyamotoi PCR Negative (Negative); Babesia divergens/MO-1 Negative (Negative); Babesia duncani Negative (Negative); Babesia microti Negative (Negative); Ehrlichia chaffeensis Negative (Negative); Ehrlichia ewingii/canis Negative (Negative); Ehrlichia muris eauclairensis Negative (Negative)
== END 2024-11-29 01:42 | disposition home or self-care (01) ==
LOC: LBO 01:41
PROVIDERS: PCP Nurse Practitioner; Visit Provider Nurse Practitioner
DX: I10 Essential (primary) hypertension (principal); R20.0 Anesthesia of skin; R20.2 Paresthesia of skin; E55.9 Vitamin D deficiency, unspecified
CPT/HCPCS: 36415; 80053; 80061; 82306; 85027; 87798; 82607; 84443; 86618